=== PATIENT | male | born 1935 | race Caucasian/White ===

== ENCOUNTER → 2016-11-17 | Outpatient (CLI) | payer MEDICARE ==
[~2016-11-17] MED LIST: BACLOFEN20 MG PO; CEFDINIR300 M1 PO; FENOFIBRATE MI134 MG PO; LATANOPROST 2.2.5 ML OP; LORTAB 5/500 501 TAB PO; MEDROL 4MG. DOSE4 MG PO; NAPROSYN 500MG500 MG PO; RAMIPRIL 10MG C10 MG PO; ZITHROMAX TRI-500 MG PO; ZOCOR40 MG PO
--- NOTE | 2016-11-17 11:40 | RADIOLOGY REPORT PS360 ---
CHEST(2 VIEWS-NOT PORTABLE) HISTORY: Bronchitis, congestion, cough BRONCHITIS ORDERING PHYSICIAN: DAYANA GAY APRN PATIENT AGE: 81 years COMPARISON: 06/25/2014 FINDINGS: The cardiomediastinal silhouette and pulmonary vascularity are within normal limits. The lungs are clear without infiltrates, suspicious nodules, or pleural effusions. No acute bony abnormalities. IMPRESSION: No change with no acute finding
== END ==
LOC: RAD 10:15
DX: J40 Bronchitis, not specified as acute or chronic (principal)